=== PATIENT | female | born 1945 | race Caucasian/White ===

== ENCOUNTER 2020-06-15 17:22 | Emergency (ER) | payer OTHER, SELFPAY ==
[2020-06-15 17:34] VITALS: BP 187/82; PULSE 66; RESP 14; TEMP 36.3; O2SAT 100; BMI 27.4
[2020-06-15] MEDS: TET,DIPH,PERTUSS(ACELL),VAC/PF 0.5 ML SYRINGE IM (18:11)
[2020-06-15] MEDS: LIDOCAINE 1% W/EPI 4 ML INJ (18:14)
[2020-06-15] MEDS: BACITRACIN OINT 0.9 GM PCKT 1 APPLIC TOP (19:22)
--- NOTE | 2020-06-15 19:27 | ED_ITS ---
HPI - Wound/Laceration <MARILOU Golden - Last Filed: 06/15/20 21:12> General Chief Complaint: Wound/Laceration Stated Complaint: Cut From Hiking Today, Back Of Left Calf Time Seen by Provider: 06/15/20 17:49 Source: patient Mode of arrival: Ambulatory Limitations: no limitations History of Present Illness HPI narrative: 75-year-old female presents emergency department for a laceration on the back of her left calf. She states she was hiking and got caught on the back of her left leg. Patient then noticed a CT was deeper than she realized. She states this happened approximately around 11AM, she is unsure the exact date of her last tetanus. Patient denies any fevers, chills, pain in her calf other than surrounding laceration, ankle pain, other injuries, chest pain, cough, sh ortness of breath, or any other concerns. Related Data Allergies Allergy/AdvReac Type Severity Reaction Status Date / Time Sulfa (Sulfonamide Allergy Verified 06/15/20 17:34 Antibiotics) Review of Systems <MARILOU Golden - Last Filed: 06/15/20 21:12> Review of Systems Narrative: REVIEW OF SYSTEMS: GENERAL: Denies fever or chills. HENT: Denies head trauma. EYE: Denies double vision or vision loss. CARDIOVASCULAR: Denies syncope. MUSCULOSKELETAL: Denies weakness, or deformities. INTEGUMENTARY: Complains of laceration to left leg, see HPI. NEURO: Denies numbness or tingling. Patient History <AMRILOU Golden - Last Filed: 06/15/20 21:12> Medical History No significant medical problems (Acute) Social History Smoking Status: Unknown if ever smoked Smoking Status: Unknown if ever smoked alcohol intake frequency: holidays/special occasions only Exam <MARILOU Golden - Last Filed: 06/15/20 21:12> Initial Vital Signs Initial Vital Signs: Vital Signs Temperature 97.4 F L 06/15/20 17:34 Pulse Rate 66 06/15/20 17:34 Respiratory Rate 14 06/15/20 17:34 Blood Pressure 187/82 H 06/15/20 17:34 Pulse Oximetry 100 06/15/20 17:34 PHYSICAL EXAMINATION: GENERAL: Well groomed, alert, and cooperative. Answers questions promptly and appropriately. Vital signs noted. HENT: Normocephalic, atraumatic. RESPIRATORY: Normal respiratory rate, trachea midline, airway patent. No stridor, nasal flaring or accessory muscle use. MUSCULOSKELETAL: Normal gait and coordination. Equal tone and mass bilaterally. EXTREMITIES: CMS intact. Moves all extremities. SKIN: Warm, dry, soft, appropriate color for ethnicity. 3 cm laceration to the back of left calf, bleeding controlled, subcu tissue visualized. No foreign bodies, repaired with sutures, see procedure note. NEURO: Alert and Oriented X 3. Good coordination. PSYCH: Appropriate affect and mood. <Woody Andres DO - Last Filed: 06/16/20 00:38> Initial Vital Signs Initial Vital Signs: Vital Signs Temperature 97.4 F L 06/15/20 17:34 Pulse Rate 66 06/15/20 17:34 Respiratory Rate 14 06/15/20 17:34 Blood Pressure 187/82 H 06/15/20 17:34 Pulse Oximetry 100 06/15/20 17:34 Procedures <MARILOU Golden - Last Filed: 06/15/20 21:12> Laceration Repair Laceration 1: Site: lower extremity Side (If applicable): left Size (cm): 3 Description: linear Depth: simple, single layer Local Anesthetic: lidocaine 1% and with epi Amount of anesthesia used (mL): 6 Pre-repair: wound explored and irrigated extensively Skin layer closed with: nylon Size (cm): 4-0 Number of sutures: 7 Technique: simple, interrupted Course <MARILOU Golden - Last Filed: 06/15/20 21:12> Orders Ordered: Discontinued Medications Bacitracin (Bacitracin) 1 applic TOP NOW ONE Stop: 06/15/20 19:09 Last Admin: 06/15/20 19:22 Dose: 1 applic Documented by: KEN Diphtheria/Tetanus/Acell Pertussis (Adacel) 0.5 ml IM .ONCE ONE Stop: 06/15/20 18:02 Last Admin: 06/15/20 18:11 Dose: 0.5 ml Documented by: FARZAD Lidocaine/Epinephrine (Xylocaine 1% W/Epi) 4 ml INJ INTRA-OP ONE Stop: 06/15/20 18:02 Last Admin: 06/15/20 18:14 Dose: 4 ml Documented by: FARZAD Vital Signs Vital signs: Vital Signs - 8 hr 06/15/20 17:34 06/15/20 19:28 Temperature 97.4 F L Pulse Rate 66 67 Respiratory Rate 14 18 Blood Pressure 187/82 H 194/92 H Pulse Oximetry 100 100 <Woody Andres DO - Last Filed: 06/16/20 00:38> Orders Ordered: Discontinued Medications Bacitracin (Bacitracin) 1 applic TOP NOW ONE Stop: 06/15/20 19:09 Last Admin: 06/15/20 19:22 Dose: 1 applic Documented by: KEN Diphtheria/Tetanus/Acell Pertussis (Adacel) 0.5 ml IM .ONCE ONE Stop: 06/15/20 18:02 Last Admin: 06/15/20 18:11 Dose: 0.5 ml Documented by: FARZAD Lidocaine/Epinephrine (Xylocaine 1% W/Epi) 4 ml INJ INTRA-OP ONE Stop: 06/15/20 18:02 Last Admin: 06/15/20 18:14 Dose: 4 ml Documented by: FARZAD Vital Signs Vital signs: Vital Signs - 8 hr 06/15/20 17:34 06/15/20 19:28 Temperature 97.4 F L Pulse Rate 66 67 Respiratory Rate 14 18 Blood Pressure 187/82 H 194/92 H Pulse Oximetry 100 100 MDM - Wound/Laceration <MARILOU Golden - Last Filed: 06/15/20 21:12> Medical Records Attestation: I reviewed the patient's medical records. Lab Data Attestation: I reviewed the patient's lab results. MDM Narrative Medical decision making narrative: Simple laceration repair without concerns foreign body due to exploration and irrigation. Subcu tissue visualized but skin layer close neatly without any deep sutures needed. No signs of infection, no concern for tendon involvement due to location superficial nature. Return precautions given for new or worsening symptoms. Tdap updated. Discharge Plan Departure Patient Disposition: Home Clinical Impression: Laceration Discharge Date/Time: 06/15/20 19:29 Instructions: DI for Laceration Repair Activity Restrictions/Additional Instructions: Thank you for entrusting me with your care today. As discussed, your laceration was repaired with 7 sutures. Please leave the dressing in place for the next 24 hours. After 24 hours, you may remove the dressing and wash the area gently with soap and water. Sutures will need to be removed in approximately 10-14 days. No foreign bodies were found in your wound today. While there is low-risk for infection at this time, retained foreign bodies and infection are always possi ble with any cut or break in the skin. Please monitor the wound closely and be re-evaluated immediately if you develop any signs of infection such as pus, increasing redness, increasing pain, fevers, or any other concerns. Referrals: Sharif Andrade MD [Primary Care Provider] - <Woody Andres DO - Last Filed: 06/16/20 00:38> Cosign ED Attending Cosignature Attestation: I was immediately available in the department for consultation. This documentation has been reviewed and I agree with assessment and plan. Supervised by Woody Andres DO
[2020-06-15 19:28] VITALS: BP 194/92; PULSE 67; RESP 18; O2SAT 100
== END 2020-06-15 19:29 | disposition home or self-care (01) ==
PROVIDERS: Emergency Provider Nurse Practitioner; PCP Internal Medicine Cardiovascular Disease
DX: S81.812A Laceration without foreign body, left lower leg, initial encounter (principal); W45.8XXA Other foreign body or object entering through skin, initial encounter; Z23 Encounter for immunization
CPT/HCPCS: 12002; 90471; 99283; 99284; 90715